=== PATIENT | female | born 1960 | race American Indian/Alaskan Native ===

== ENCOUNTER → 2019-08-07 11:24 | Outpatient (BNVA) | payer MEDICAID, SELFPAY | PROVIDERS: Family Provider Nurse Practitioner Family; Visit Provider Nurse Practitioner Family | DX: N30.90 Cystitis, unspecified without hematuria (principal); N30.10 Interstitial cystitis (chronic) without hematuria | CPT/HCPCS: 80053; 80076; 81001 ==

== ENCOUNTER → 2019-08-25 08:10 | Outpatient (BNVA) | payer MEDICAID, SELFPAY | PROVIDERS: Family Provider Nurse Practitioner Family; Visit Provider Nurse Practitioner | DX: Z11.59 Encounter for screening for other viral diseases (principal) | CPT/HCPCS: 87635 ==

== ENCOUNTER 2019-11-28 10:53 | Outpatient (CLI) | payer MEDICAID, SELFPAY ==
--- NOTE | 2019-11-28 11:03 | XR_ITS ---
WS: [id number] RIGHT KNEE: 3 VIEW(S) TECHNIQUE: AP, oblique(s) and lateral. HISTORY: PAIN IN RIGHT KNEE COMPARISON: 09/06/2012 No fracture or dislocation. Moderate tricompartment osteoarthritis with joint space narrowing and hypertrophic osteophytes. Moderate progression since the prior study. XR/XR knee RT 3V* [id number] IMPRESSION: Interval progression of tricompartment moderate osteoarthritis.
== END 2019-11-28 10:54 | disposition home or self-care (01) ==
LOC: RADWPI 10:57
PROVIDERS: Family Provider Nurse Practitioner Family; PCP Nurse Practitioner Family; Visit Provider Anesthesiology Pain Medicine
DX: M17.11 Unilateral primary osteoarthritis, right knee (principal)
CPT/HCPCS: 73562

== ENCOUNTER → 2020-01-08 08:56 | Outpatient (BNVA) | payer MEDICAID, SELFPAY | PROVIDERS: Family Provider Nurse Practitioner Family; PCP Nurse Practitioner Family; Referring Provider Anesthesiology Pain Medicine; Visit Provider Specialist | DX: M25.561 Pain in right knee (principal); M17.11 Unilateral primary osteoarthritis, right knee | CPT/HCPCS: 73560; 73565 ==

== ENCOUNTER 2020-01-12 08:35 | Outpatient (CLI) | payer MEDICAID, SELFPAY ==
[2020-01-12 09:55] LABS: Glucose Fasting 165 mg/dL (74-109)
[2020-01-13 11:24] LABS: C-Peptide 0.64 ng/mL (0.80-3.85)
== END 2020-01-12 08:36 | disposition home or self-care (01) ==
PROVIDERS: PCP Nurse Practitioner Family; Visit Provider Internal Medicine Endocrinology, Diabetes & Metabolism
DX: E11.40 Type 2 diabetes mellitus with diabetic neuropathy, unspecified (principal); Z79.4 Long term (current) use of insulin; I10 Essential (primary) hypertension
CPT/HCPCS: 36415; 82947; 84681

== ENCOUNTER → 2020-04-10 12:58 | Outpatient (BNVA) | payer MEDICAID, SELFPAY | PROVIDERS: PCP Nurse Practitioner Family; Visit Provider Nurse Practitioner Family | DX: N30.10 Interstitial cystitis (chronic) without hematuria (principal); N30.90 Cystitis, unspecified without hematuria | CPT/HCPCS: 81003 ==

== ENCOUNTER → 2020-09-25 10:59 | Outpatient (BNVA) | payer MEDICAID, SELFPAY | PROVIDERS: PCP Nurse Practitioner Family; Visit Provider Internal Medicine Cardiovascular Disease | DX: R07.9 Chest pain, unspecified (principal); R53.83 Other fatigue; E11.9 Type 2 diabetes mellitus without complications; E78.5 Hyperlipidemia, unspecified; K21.9 Gastro-esophageal reflux disease without esophagitis | CPT/HCPCS: 80053; 83735; 84443; 85025 ==

== ENCOUNTER 2020-10-10 08:16 | Outpatient (CLI) | payer MEDICAID, SELFPAY ==
--- NOTE | 2020-10-10 08:25 | ECG_ITS ---
[facility] Test Date: 2020-10-10 Pat Name: Chelsy Desai Department: Room: Gender: Female Chlorine Cell Tender: : 1960 Requested By: Charissa Schwab Order Number: [id number] Jaspreet MD: Charissa Schwab M.D. Interpretive Statements NAME OF STUDY: LEXISCAN SESTAMIBI STRESS TEST INDICATION: Chest Pain PROCEDURE: At the baseline, the blood pressure was 145/71 mmHg with a heart rate of 65 bpm. The electrocardiogram showed normal sinus rhythm, normal axis with normal ST and T's. The Lexiscan was infused over a period of 20 seconds. A total of 0.4 milligrams of Lexiscan was infused. The stress phase was continued for a total of 5 minutes. Heart rate at the end of the stress phase was 81 bpm with a blood pressure of 143/73 mmHg. The EKG at the peak infusion revealed no significant ST-T wave changes. The study was terminated due to protocol completion. Sestamibi was injected 20 seconds after the Lexiscan infusion. Blood pressure at the end of the recovery phase was 141/70 mmHg with a heart rate of 80 beats per minute. CONCLUSION: 1. No significant EKG changes with the LexiScan infusion. 2. No LexiScan induced chest pain or cardiac arrhythmia. 3. Normal blood pressure and heart rate response. 4. Sestamibi/sestamibi perfusion scan pending; see separate report. Electronically Signed On 10-11-2020 14:01:02 CDT by Charissa Schwab M.D. [id number]
--- NOTE | 2020-10-10 08:25 | NMCV_ITS ---
NM yonas perf SPECT r/s* [id number] Chelsy Desai Age: 60 Gender: F : 1960 Exam Date: 10/10/2020 09:24 Ordering Phys: Charissa Schwab MD ([email or web address]) Technologist: AUBRIE Taveras Exam Location: [facility] Indications: CHEST PAIN STRESS TEST Please see separate stress test report in [facility] for full findings IMAGE PROTOCOL Rest/Stress 1 Lexiscan Day Radiopharmaceutical Dose (mCi) Administration Site Administered by Rest: Tc-99m 10.9 IV AUBRIE Carrizales Sestamibi Stress:Tc-99m 32.7 IV AUBRIE Carrizales Sestamibi Rest: 10-Oct-2020 60 Discovery 630 Stress: 10-Oct-2020 30 Discovery 630 0.4mg Lexiscan. Images obtained in supine and prone position. SPECT RESULTS Technical Quality: Excellent Raw Data Analysis: Normal Image Corrections: No attenuation or motion correction applied Summed Stress Score: 2 Summed Rest Score: 0 Summed Difference Score: 2 PERFUSION FINDINGS Small sized perfusion abnormality of mild severity of apical inferior and apical lateral muhammad on stress images. FUNCTIONAL RESULTS (calculated via Gated SPECT) Stress Image LV EF (%): 86 Stress EDV (mL):81 TID: 0.94 Stress ESV (mL):11 FUNCTIONAL FINDINGS: The left ventricle is normal in size. Transient Ischemia Dilatation of 0.94. There is hyperdynamic left ventricular global systolic function. The left ventricular ejection fraction is normal with a value of 86%. There is hyperdynamic left ventricular wall thickening with no regional wall motion normality. Normal end-diastolic end-systolic volumes. IMPRESSIONS 1. Small sized reversible perfusion abnormality of mild severity of apical inferior and apical lateral muhammad. 2. This may represent small risk area of ischemia in left anterior descending artery territory (SDS=2). 3. Overall left ventricular systolic function is hyperdynamic without regional wall motion abnormalities, LVEF=86%. 4. No prior similar studies to compare. Charissa Schwab MD (Electronically Signed) Final Date: 11 October 2020 14:08 S
[2020-10-10 08:59] VITALS: BMI 40.5
[2020-10-10] MEDS: regadenoson 0.4 Mg/5 ml Syringe IVP (10:07)
[2020-10-10 10:31] VITALS: BP 144/70; PULSE 80
== END 2020-10-10 08:17 | disposition home or self-care (01) ==
LOC: CDL 08:17
PROVIDERS: PCP Nurse Practitioner Family; Visit Provider Internal Medicine Cardiovascular Disease
DX: R07.9 Chest pain, unspecified (principal)
CPT/HCPCS: 78452; 93017; A9500; J2785

== ENCOUNTER 2020-11-01 09:05 | Outpatient (CLI) | payer MEDICAID, SELFPAY ==
--- NOTE | 2020-11-01 09:30 | USCV_ITS ---
Chelsy Desai Age: 60 Gender: F : 1960 Exam Date: 11/01/2020 09:25 Ordering Phys: Charissa Schwab MD ([email or web address]) Technologist: Exam Location: [facility] Indication: AAA HISTORY: Diameter (cm) AP x Transverse x Length Velocity (cm/s) Waveform Prox Aorta: 2.00 x 2.07 x 104.90 Mid Aorta: 1.87 x 2.06 x 84.30 Distal Aorta: 1.42 x 1.58 x 114.00 Right Iliac Prox: 1.10 x 1.48 x 84.30 Left Iliac Prox: 1.10 x 1.35 x 110.70 Stent Prox Landing x x Aneurysmal Sac Max x x Lt Lat Sac Dim Rt Lat Sac Dim Stent Dist Landing x x Right Iliac Stent x x Left Iliac Stent x x Right Renal Art Left Renal Art FINDINGS: Normal abdominal aortic dimensions Near normal dimensions of the iliac arteries Normal Doppler flow velocities CONCLUSIONS Normal abdominal aortic dimensions with no evidence of aneurysm Normal proximal common iliac artery dimensions. Doppler velocities suggesting no significant stenosis in the above- mentioned arteries No similar previous studies are available for comparison Dr Terry Mccluer MD [facility] (Electronically Signed) Final Date: 04 November 2020 09:05 S
--- NOTE | 2020-11-01 10:15 | USCV_ITS ---
Chelsy Desai Age: 60 Gender: F : 1960 Exam Date: 11/01/2020 09:32 Ordering Phys: Charissa Schwab MD ([email or web address]) Technologist: Exam Location: [facility] Indication: PAD Risk Factors: None Previous Vascular Surgery: RIGHT LEFT BP: 135.0 / 80.00 BP: 130.0/ 80.00 0 0 Waveform Velocity (cm/s) Velocity (cm/s) Waveform Triphasic 136.0 Iliac Prox 99.7 Triphasic Triphasic 132.1 Iliac Mid 97.1 Triphasic Triphasic 133.4 Iliac Distal 110.1 Triphasic Triphasic 113.9 FINANCIAL REPRESENTATIVE 107.5 Triphasic Triphasic 110.1 SFA Prox 101.0 Triphasic Triphasic 98.4 SFA Mid 111.4 Triphasic Triphasic 88.0 SFA Dist 82.9 Triphasic Triphasic 64.7 POP 63.4 Triphasic Triphasic 89.3 MEMBER SERVICES REPRESENTATIVE 54.0 Triphasic Triphasic 72.0 DPA 33.2 Triphasic RADHA 1.0 1.0 FINDINGS Normal Doppler flow velocities and Doppler flow signals Intimal thickening and minimal plaques in the femoral arteries bilaterally Normal resting ABIs bilaterally CONCLUSIONS Intimal thickening and minimal plaques in the femoral arteries bilaterally Normal resting ABIs bilaterally with no evidence of any significant stenosis Dr Terry Mcclure MD [facility] (Electronically Signed) Final Date: 04 November 2020 09:08 S
== END 2020-11-01 09:06 | disposition home or self-care (01) ==
LOC: US 09:07
PROVIDERS: PCP Nurse Practitioner Family; Visit Provider Internal Medicine Cardiovascular Disease
DX: I73.9 Peripheral vascular disease, unspecified (principal); M79.604 Pain in right leg; M79.605 Pain in left leg
CPT/HCPCS: 76706; 93925

== ENCOUNTER → 2021-01-21 08:09 | Outpatient (BNVA) | payer MEDICAID, SELFPAY | PROVIDERS: PCP Nurse Practitioner Family; Visit Provider Internal Medicine Cardiovascular Disease | DX: Z20.822 Contact with and (suspected) exposure to COVID-19 (principal); R07.9 Chest pain, unspecified; R06.02 Shortness of breath | CPT/HCPCS: 36415; 80048; 85025; 85610; 87635 ==

== ENCOUNTER 2021-01-28 05:57 | Outpatient (CLI) | payer MEDICAID, SELFPAY ==
[2021-01-28] VITALS (16 sets, daily range): BP systolic 110–137; BP diastolic 61–75; PULSE 64–72; RESP 14–27; TEMP 36.6; O2SAT 93–96; BMI 43.3
--- NOTE | 2021-01-28 06:11 | XACV_ITS ---
Ht: 157 cm Wt: 108 kg BSA: 2.23 m2 Gender: Female : 1960 Any Known Allergies: Other Exam Priority: Routine Procedure(s): Procedure Description: Diagnostic procedure Procedure Description: Left Heart Catheterization Procedure Description: Left ventriculography Procedure Description: Coronary Angiography Diagnostic Cath Status: Elective Diagnostic Findings * Indication: Chest pain/abnormal stress test. * No disease noted in the Left Main, Left Anterior Descending, Right, or Circumflex coronary arteries. * Coronary angiography shows right dominance. Conclusions 1. No disease noted in the Left Main, Left Anterior Descending, Right, or Circumflex coronary arteries. 2. Normal left ventricular systolic function. Ejection fraction of 65%. Recommendations * Aggressive risk factor modification. * Outpatient cardiology follow-up in 4 weeks. Interventional RX Recommendation: medical therapy and/or counseling Diagnostic RX Recommendation: medical therapy and/or counseling Anticoagulation: Heparin Ventriculography Ejection Fraction: 65.0 % Pressures Phase:Rest AO : 146 / 67 ( 100 ) @ 6:08:00 AM 125 / 78 ( 101 ) @ 6:09:00 AM 144 / 67 ( 99 ) @ 6:20:00 AM 143 / 61 ( 95 ) @ 6:20:00 AM LV : 153 / -2 / 20 @ 6:19:00 AM 150 / 0 / 21 @ 6:20:00 AM 147 / 3 / 24 @ 6:20:00 AM Valves Phase:DefaultPhase AV : 3.0 @ 8:28:42 AM AV Mean Gradient: 9.0 @ 8:28:42 AM Clinical Evaluation EBL: 5mL-10mL Procedural Details Procedure Consent Obtained. Pre-Procedure Time Out. Identified patient by full name and date of as verbalized by the patient/guarantor. Does the consent match the physician's order: Yes. Accurate & Complete Informed Consent: Yes. Inpatient/Outpatient History & Physical on Chart: Yes. If H&P is completed, is and addenduem needed: Yes; If yes, is the addendum complete: Yes. Visualize and Verify Site with Patient/Guarantor: N/A. Relevant Radiology Images available: Yes. Pre-op teaching completed and patient verbalized understanding. The risks, benefits, and alternatives of sedation and/or procedure were discussed by physician. The patient agrees to continue. Procedure started. [facility] Clinical Fraility Score: 3: Managing Well. Utilities Equipment Repairer Indications: Suspected CAD. Chest Pain Symptom Assessment: Typical Angina Symptoms. Correct patient, site and procedure confirmed by cath team. Current diagnosis: Chest Pain. Current Diagnosis : Chest Pain. PERRLA. Strong, equal hand farm implement engine mechanic bilaterally. Lungs clear x 5 lobes. IV Site on Arrival: 20 gauge in the left forearm. IV Fluids: 0.9% NaCl at KVO. 0 mL infused prior to confectionery laboratory manager. Pre Procedural Pulses: bilateral dorsalis pedis was 1+. Pre Procedural Pulses: bilateral posterior tibial was 1+. Pre Procedural Pulses: right radial was 3+. Oxygen started at 2liters/min via nasal canula. right groin was prepped with chloroprep then draped in the usual sterile fashion. right radial was prepped with chloroprep then draped in the usual sterile fashion. Baseline sample Acquired. HR: 67 BPM. Physician notified. Physician arrived. Physician scrubbed in. Immediate Pre-Procedure Time Out. Correct Patient: Yes; Correct Procedure: Yes; Correct Site: Yes; Correct Patient Position: Yes; Correct Supplies: Yes; Dried Flammable Prep: Yes; Blood Products Available: N/A;. Lidocaine 1% infiltrated to the right radial. Arterial access obtained. A 5 [place] TIG catheter in over wire. Multiple views taken of left coronary artery. Catheter redirected to the RCA. Multiple views taken of right coronary artery. Catheter removed over the exchange wire. A 5 [place] JL3.5 catheter in over wire. Multiple views taken of left coronary artery. Catheter removed over the exchange wire. A 5 [place] Angled Pig catheter in over wire. EDP Sample taken: LV 153/-3,20; HR: 75 BPM; SpO2: 96%. LV gram performed in SUE @ 10 mL/second for a total of 30 mL. EDP Sample taken: LV 150/-1,21; HR: 72 BPM; SpO2: 96%. Pullback taken: LV 147/3,24; AO 144/67(99); Mean: 9mmHg, Peak to Peak: 3mmHg, SEP: 16sec/min; HR: 72 BPM; SpO2: 96%. Catheter removed over the exchange wire. A TR Band was successful obtaining hemostatsis at the Right Radial artery insertion site. Post Procedure: Pulses reassessed and unchanged. PERRLA. Strong, equal hand farm implement engine mechanic bilaterally. No VTE prophylaxis required. Medication's Wasted: Lidocaine 1% = 16 mL. Medication's Wasted: Nitro = 49.8 mg. Medication's Wasted: Heparin = 1000 units. Total IV fluids: 50 mL. Contrast type used: Visipaque 320 mgI/mL, 500 mL bottle. Complications: None. Estimated blood loss: 5mL-10mL. Procedure completed. Patient transferred by wheelchair to CPRU. Vital chart was stopped. Access Site Site: Right Radial artery Sheath Size: 6 Fr Hemostasis Method: TR Band Hemostasis Success: Successful Procedure Medications Start: 7:47 AM Stop: 7:47 AM Medication: Fentanyl Amount: 50 mcg Route: I.V. Start: 7:56 AM Stop: 7:56 AM Medication: Versed Amount: 2 mg Route: I.V. Start: 8:03 AM Stop: 8:03 AM Medication: Fentanyl Amount: 50 mcg Route: I.V. Start: 8:04 AM Stop: 8:04 AM Medication: Nitrogylcerin Amount: 200 mcg Route: I.A. Start: 8:07 AM Stop: 8:07 AM Medication: Heparin Amount: 5000 units Route: I.V. Start: 8:11 AM Stop: 8:11 AM Medication: Versed Amount: 1 mg Route: I.V. I, the attending physician, have reviewed and verified all procedure medications. Yes, all medications given per verbal order History/Risk Factors Hypertension: No Dyslipidemia: Yes Peripheral Arterial Disease (PAD): No Myocardial Infarction (NH): No Obesity: Yes Renal Disease: No Tobacco Use: Current/Recent(w/in 1 year) Prior Interventions PCI: No CABG: No Valve Surgery: No Report Signatures Finalized by Bakari Robertson MD on 02/11/2021 11:17 AM
--- NOTE | 2021-01-28 07:48 | W.PM.OPSFHP ---
Same Day Surgery H&P Indication for Procedure/HPI DATE OF PROCEDURE: January 28, 2021 CHIEF COMPLAINT/INDICATIONFOR SURGICAL PROCEDURE: Chest pain/abnormal stress test PREOP DIAGNOSIS: Chest pain/abnormal stress test PLANNED PROCEDRUE: Operation Date: 01/28/21 07:00 Proposed Procedures p Cardiac Catheterization(Left) - Bakari Robertson M.D Possible percutaneous coronary intervention 60-year-old woman with PMH of HTN, HLD, DM-2, ERIC on CPAP and GERD has been having chest pain, shortness of breath and had an abnormal stress test. Plan for coronary angiogram today. ROS CONSTITUTIONAL: No fever chills weight loss or gain or night sweats. [] HEENT: Normocephalic, atraumatic.[] RESPIRATORY: No cough, sputum, hemoptysis or wheezing.[] CARDIOVASCULAR: Has shortness of breath and chest pain, no PND, orthopnea, lower extremity edema, presyncope or syncope. [] GI: no nausea vomiting diarrhea. [] PHARMACEUTICAL SERVICE REPRESENTATIVE: No numbness, tingling, weakness or loss of function in any part of the body. [] MUSCULOSKELETAL: No knee or joint pain or rashes. [] Medications/Allergies* Home Medications Medication Instructions Recorded Confirmed Type albuterol sulfate 90 mcg/actuation 2 puff INHALATION Q6H PRN 08/07/19 01/27/21 History aerosol inhaler atorvastatin 40 mg tablet 40 mg PO DAILY 08/07/19 01/27/21 History esomeprazole magnesium 40 mg 40 mg PO DAILY 08/07/19 01/27/21 History capsule,delayed release montelukast 10 mg tablet 10 mg PO DAILY 08/07/19 01/27/21 History insulin pump controller #1 ea 04/10/20 04/10/20 History cetirizine 10 mg tablet 10 mg PO DAILY PRN 09/16/20 01/27/21 History fluticasone propionate 50 1 spray INTRANASAL DAILY 09/16/20 01/27/21 History mcg/actuation nasal spray,suspension furosemide 20 mg tablet 20 mg PO DAILY 09/16/20 01/27/21 History acetaminophen 325 mg capsule 325 mg PO QID PRN 12/26/20 01/27/21 History Allergies/Adverse Reactions Allergy/AdvReac Type Severity Reaction Status Date / Time adhesive tape Allergy Unknown ALGY-Rash Verified 12/17/20 15:03 aspirin Allergy Unknown Unknown Verified 12/17/20 15:03 hydroxyzine Allergy Unknown Unknown Verified 12/17/20 15:03 latex Allergy Unknown ALGY-Rash Verified 12/17/20 15:03 Penicillins Allergy Unknown unknown Verified 12/17/20 15:03 povidone-iodine Allergy Unknown ALGY-Rash Verified 12/17/20 15:03 [From Betadine] prednisone Allergy Unknown Unknown Verified 12/17/20 15:03 soap [From Betadine] Allergy Unknown ALGY-Rash Verified 12/17/20 15:03 sulfamethoxazole Allergy Unknown Unknown Verified 12/17/20 15:03 [From Bactrim] trimethoprim [From Bactrim] Allergy Unknown Unknown Verified 12/17/20 15:03 theophylline AdvReac ADR-Diarrhe Verified 12/17/20 15:03 a Pertinent History/Comorbid Conditions* Medical History (Updated 12/22/20 @ 21:39 by Charissa Schwab MD) Chronic interstitial cystitis Chronic migraine Diabetes mellitus type 2 in nonobese Dyslipidemia GERD (gastroesophageal reflux disease) Polycythemia Recurrent cystitis Tobacco abuse Surgical History (Updated 08/06/19 @ 09:03 by Zhen Guerin MD) History of ankle surgery History of appendectomy History of arthroscopic knee surgery History of cholecystectomy History of hysterectomy History of shoulder surgery History of vocal cord polypectomy Family History (Updated 08/06/19 @ 09:05 by Zhen Guerin MD) Pancreatic cancer CAD (coronary artery disease) Social History Smoking and tobacco status: former smoker Alcohol intake: unknown Adopted: No Caregiver/support person: No Marital status: Legally Current occupational status: disabled Current gender identity: Female Pertinent Exam Findings alert, oriented x 3, clear to auscultation bilaterally and regular rate & rhythm Conscious Sedation Assessment PATIENT ASSESSED PRIOR TO SEDATION, WITH NO CHANGE NOTED: Yes AIRWAY EVAL/ANESTHESIA PLAN: normal airway, see other exam findings, ASA III, Monitored Anesthesia, Local Anesthesia, Risks, benefits & alternatives of sedation and/or procedure discussed and Patient agrees to continue as planned Recommendations Surgery/Procedure today (Left heart cath with possible percutaneous coronary intervention) Coding Level of Care Code Acute Clinical Esthetician for Yoel De La Cruz
--- NOTE | 2021-01-28 10:45 | SUR.PHASEII ---
TR BAND Band deflated and removed per protocol. No hematoma noted at this time.
--- NOTE | 2021-01-28 12:09 | ECG_ITS ---
[facility] Test Date: 2021-01-28 Pat Name: Chelsy Desai Department: Room: Gender: Female Video Library Assistant: : 1960 Requested By: Bakari Robertson Order Number: [id number] Jaspreet MD: Bakari Robertson M.D. Measurements Intervals [place] Rate: 67 P: 33 MT: 171 QRS: -16 QRSD: 75 T: 33 QT: 406 QTc: 429 Interpretive Statements SINUS RHYTHM No previous ECG available for comparison Electronically Signed On 01-29-2021 17:40:11 TEACHER AIDE by Bakari Robertson M.D. [id number]
== END 2021-01-28 12:33 | disposition home or self-care (01) ==
PROVIDERS: PCP Nurse Practitioner Family; Visit Provider Internal Medicine
DX: R07.89 Other chest pain (principal); R94.39 Abnormal result of other cardiovascular function study; I10 Essential (primary) hypertension; E11.9 Type 2 diabetes mellitus without complications; G47.33 Obstructive sleep apnea (adult) (pediatric); K21.9 Gastro-esophageal reflux disease without esophagitis; R06.02 Shortness of breath; E78.5 Hyperlipidemia, unspecified; Z87.891 Personal history of nicotine dependence
CPT/HCPCS: 36415; 93005; 93452; C1769; C1887; C1894; J1644; J2250; J3010; J3490; Q0163; Q9967

== ENCOUNTER → 2021-02-04 16:07 | Outpatient (BNVA) | payer MEDICAID, SELFPAY | PROVIDERS: PCP Nurse Practitioner Family; Visit Provider Nurse Practitioner Family | DX: E78.5 Hyperlipidemia, unspecified (principal); E11.9 Type 2 diabetes mellitus without complications | CPT/HCPCS: 80048 ==

== ENCOUNTER 2021-06-30 20:00 | Outpatient (CLI) | payer MEDICAID, SELFPAY | END 2021-06-30 20:01 | disposition home or self-care (01) | LOC: SLEEP 07-01 10:15 | PROVIDERS: PCP Nurse Practitioner Family; Visit Provider Anesthesiology Pain Medicine | DX: G47.33 Obstructive sleep apnea (adult) (pediatric) (principal) | CPT/HCPCS: 95811 ==

== ENCOUNTER → 2022-03-26 14:04 | Outpatient (BNVA) | payer MEDICAID, SELFPAY | PROVIDERS: PCP Nurse Practitioner Family; Visit Provider Internal Medicine Cardiovascular Disease | DX: R07.9 Chest pain, unspecified (principal); F17.200 Nicotine dependence, unspecified, uncomplicated | CPT/HCPCS: 99214; Q3014 ==

== ENCOUNTER → 2022-07-08 11:20 | Outpatient (BNVA) | payer MEDICAID, SELFPAY | PROVIDERS: PCP Nurse Practitioner Family; Visit Provider Internal Medicine Pulmonary Disease | DX: M17.12 Unilateral primary osteoarthritis, left knee (principal); M19.021 Primary osteoarthritis, right elbow | CPT/HCPCS: 73080; 73562 ==

== ENCOUNTER → 2023-04-23 09:58 | Outpatient (BNVA) | payer MEDICAID, SELFPAY | PROVIDERS: PCP Nurse Practitioner Family; Visit Provider Internal Medicine Cardiovascular Disease | DX: E78.5 Hyperlipidemia, unspecified (principal); Z72.0 Tobacco use; E11.9 Type 2 diabetes mellitus without complications; R00.2 Palpitations; R07.9 Chest pain, unspecified; K21.9 Gastro-esophageal reflux disease without esophagitis; Z79.4 Long term (current) use of insulin | CPT/HCPCS: 99213 ==

== ENCOUNTER → 2023-05-03 12:45 | Outpatient (BNVA) | payer MEDICAID, SELFPAY | PROVIDERS: PCP Nurse Practitioner Family; Visit Provider Internal Medicine Cardiovascular Disease | DX: R00.1 Bradycardia, unspecified (principal); R00.0 Tachycardia, unspecified | CPT/HCPCS: 93270 ==

== ENCOUNTER → 2023-11-15 11:32 | Outpatient (BNVA) | payer MEDICAID, SELFPAY | PROVIDERS: PCP Nurse Practitioner Family; Visit Provider Internal Medicine Cardiovascular Disease | DX: R00.1 Bradycardia, unspecified (principal); R07.9 Chest pain, unspecified | CPT/HCPCS: 93005 ==

== ENCOUNTER 2023-11-15 11:48 | Emergency (ER) | payer MEDICAID, SELFPAY ==
--- NOTE | 2023-11-15 11:51 | ECG_ITS ---
[facility] Test Date: 2023-11-15 Pat Name: Chelsy Desai Department: Room: Gender: Female In File Operator: : 1960 Requested By: Lina Thomas Order Number: [id number] Jaspreet MD: Bakari Robertson M.D. Measurements Intervals [place] Rate: 60 P: 44 MI: 181 QRS: -11 QRSD: 82 T: 29 QT: 400 QTc: 401 Interpretive Statements SINUS RHYTHM LOW QRS VOLTAGE IN PRECORDIAL LEADS [QRS DEFLECTION < 1.0 mV IN CHEST LEADS] PATTERN CONSISTENT WITH PULMONARY DISEASE Compared to ECG 11/15/2023 11:36:49 Low QRS voltage now present Electronically Signed On 11-16-2023 7:44:07 CDT by Bakari Robertson M.D. [email or web address] [email or web address].[email or web address]/[id number] f
--- NOTE | 2023-11-15 11:51 | XR_ITS ---
WS: [id number] XR chest 1V portable [id number] REASON FOR EXAM: cp FINDINGS: The tortuosity and ectasia of the thoracic aorta has increased since the previous examination of 02/06. Cardiac silhouette appears larger than on the previous examination as well. Remainder of the chest appears unchanged. There is calcified granulomatous disease bilaterally. No acute pulmonary parenchymal or pleural abnormality is identified. Moderate degenerative spondylosis of the mid and lower thoracic spine. Previous rotator cuff tendon repair right shoulder. XR/XR chest 1V portable [id number] IMPRESSION: No acute chest abnormality.
[2023-11-15 12:01] VITALS: BP 149/81; PULSE 61; TEMP 36.7; O2SAT 97; BMI 37.9
[2023-11-15 12:22] LABS: Basophils # 0.1 10^3/uL (0.0-0.1); Basophils % 0.6 %; Eosinophils # 0.2 10^3/uL (0.0-0.8); Eosinophils % 1.9 %; Hematocrit 45.4 % (36-47); Lymphocytes # 2.5 10^3/uL (0.8-4.8); Lymphocytes % 25.9 %; Mean Corpuscular HGB Conc 33.7 g/dL (30-55); Mean Corpuscular Hemoglobin 30.7 pg (27-33); Mean Corpuscular Volume 91.2 fl (85-98); Mean Platelet Volume 10.1 fL (7.4-10.4); Monocytes # 0.6 10^3/uL (0.2-0.9); Monocytes % 6.4 %; Neutrophils # 6.24 10^3/uL (1.8-7.7); Neutrophils % 64.8 %; Nucleated Red Blood Cells % 0 %; Platelet Count 323 10^3/cmm (157-399); Red Blood Count 4.98 10^6/uL (3.85-5.65); Red Cell Distribution Width 12.6 % (12.1-15.1); White Blood Count 9.63 10^3/uL (3.29-11.43)
[2023-11-15 12:38] LABS: INR 0.91 (0.8-1.2)
[2023-11-15 12:43] LABS: Alanine Aminotransferase 20 U/L (0-33); Albumin Level 4.7 g/dL (3.5-5.2); Alkaline Phosphatase 79 U/L (35-105); Anion Gap 15.3 (5-19); Aspartate Amino Transferase 15 U/L (0-32); Blood Urea Nitrogen 10 mg/dL (8-23); Calcium 9.5 mg/dL (8.5-10.5); Carbon Dioxide 28 mmol/L (22-29); Chloride 102 mmol/L (98-107); Creatinine Clr Calc Pharmacy 91.2503; Globulin 2.6 g/dL (1.3-4.6); Glomerular Filtration Rate 84.5 mL/min (90-130); Glucose 109 mg/dL (65-115); Lipase 22 U/L (13-60); Osmolality Calculated 292 mOsm/kg (285-295); Potassium 4.3 mmol/L (3.5-5.1); Sodium 141 mmol/L (136-145); Total Bilirubin 0.4 mg/dL (0.15-1.2); Total Protein 7.3 g/dL (6.6-8.7)
[2023-11-15 12:45] LABS: Troponin(5th) Baseline < 6 ng/L (0-10)
--- NOTE | 2023-11-15 13:51 | ECG_ITS ---
[facility] Test Date: 2023-11-15 Pat Name: Chelsy Desai Department: Room: Gender: Female Nursing Informatics Specialist: : 1960 Requested By: Lina Thomas Order Number: [id number] Jaspreet MD: Bakari Robertson M.D. Measurements Intervals [place] Rate: 53 P: 48 IA: 181 QRS: -4 QRSD: 77 T: 36 QT: 410 QTc: 387 Interpretive Statements SINUS BRADYCARDIA Compared to ECG 11/15/2023 11:58:19 Sinus rhythm no longer present Electronically Signed On 11-16-2023 7:52:09 CDT by Bakari Robertson M.D. [email or web address] Solutionspark[facility].DrEd Online Doctor/store/[id number]
[2023-11-15 13:53] VITALS: BP 105/56; PULSE 67; O2SAT 97
[2023-11-15 13:57] LABS: Troponin 5 2HR Delta 0.00001 ABS# (0-10)
--- NOTE | 2023-11-15 14:05 | W.ED.CHESTPA ---
HPI - Chest Pain General: Chief Complaint: Chest Pain Stated Complaint: chest pain Time Seen by Provider: 11/15/23 13:30 Source: patient Mode of arrival: ambulatory Limitations: no limitations History of Present Illness: 63-year-old female states she has been having chest pain that started this morning states it is a mild pressure-like pain in the center of her chest she rates her pain a 2 out of 10 currently states she also developed a headache. Denies any severe headache and it was not sudden onset she denies any shortness of breath denies any nausea denies any diaphoresis. Associated symptoms: Deny abdominal pain, dyspnea, fever(s), nausea or vomiting Related Data Home Medications Medication Instructions Recorded Confirmed albuterol sulfate 90 mcg/actuation 2 puff inhalation Q6H PRN 08/07/19 11/15/23 aerosol inhaler (ProAir HFA) Shortness Of Breath atorvastatin 40 mg tablet 40 mg PO DAILY 08/07/19 11/15/23 esomeprazole magnesium 40 mg 40 mg PO DAILY 08/07/19 11/15/23 capsule,delayed release montelukast 10 mg tablet 10 mg PO DAILY 08/07/19 11/15/23 (Singulair) insulin pump controller #1 ea 04/10/20 11/15/23 cetirizine 10 mg tablet (All Day 10 mg PO DAILY PRN Allergy Symptoms 09/16/20 11/15/23 Allergy (cetirizine)) fluticasone propionate 50 1 spray intranasal DAILY 09/16/20 11/15/23 mcg/actuation nasal spray,suspension (Allergy Relief (fluticasone)) furosemide 20 mg tablet 20 mg PO DAILY 09/16/20 11/15/23 acetaminophen 325 mg capsule 325 mg PO QID PRN Pain (Scale 12/26/20 11/15/23 Score 1-3) liraglutide 0.6 mg/0.1 mL (18 mg/3 1.2 mg SUBCUT Q24H 03/26/22 11/15/23 mL) subcutaneous pen injector (Victoza 2-Martin) Previous Rx's Medication Instructions Recorded nitroglycerin 0.4 mg sublingual 0.4 mg sublingual Q5M PRN chest 12/22/20 tablet pain #30 tabs losartan 25 mg tablet See Rx Instructions .Route 02/02/23 .COMPLEX #90 tabs clopidogrel 75 mg tablet (Plavix) 75 mg PO DAILY #90 tabs 06/23/23 metoprolol succinate 25 mg 25 mg PO DAILY #90 tabs 07/21/23 tablet,extended release 24 hr Allergies Allergy/AdvReac Type Severity Reaction Status Date / Time adhesive tape Allergy Unknown ALGY-Rash Verified 11/15/23 12:06 aspirin Allergy Unknown Unknown Verified 11/15/23 12:06 hydroxyzine Allergy Unknown Unknown Verified 11/15/23 12:06 latex Allergy Unknown ALGY-Rash Verified 11/15/23 12:06 Penicillins Allergy Unknown unknown Verified 11/15/23 12:06 povidone-iodine Allergy Unknown ALGY-Rash Verified 11/15/23 12:06 [From Betadine] prednisone Allergy Unknown Unknown Verified 11/15/23 12:06 soap [From Betadine] Allergy Unknown ALGY-Rash Verified 11/15/23 12:06 sulfamethoxazole Allergy Unknown Unknown Verified 11/15/23 12:06 [From Bactrim] trimethoprim [From Bactrim] Allergy Unknown Unknown Verified 11/15/23 12:06 theophylline AdvReac ADR-Diarrhe Verified 11/15/23 12:06 a Review of Systems Const: Denies: fever(s), chills, body aches or change in appetite ENMT: Denies: throat pain or dental pain Card: Reports: chest pain Resp: Denies: dyspnea GI: Denies: abdominal pain, nausea, vomiting or diarrhea Musc: Denies: neck pain or back pain Skin/Breast: Denies: rash Neuro: Reports: headache(s) PFSH ED PFSH: Medical History Intermittent palpitations Polycythemia Tobacco abuse Chronic migraine Dyslipidemia GERD (gastroesophageal reflux disease) Diabetes mellitus type 2 in nonobese Recurrent cystitis Chronic interstitial cystitis Surgical History History of arthroscopic knee surgery History of shoulder surgery History of vocal cord polypectomy History of cholecystectomy History of ankle surgery History of appendectomy History of hysterectomy Family History Father Arrhythmia Other CAD (coronary artery disease) Pancreatic cancer Social History Smoking and tobacco/nicotine status: former use of tobacco/nicotine Alcohol intake: unknown Substance/Drug Use: unknown Adopted: No Caregiver/support person: No Marital status: Legally Current occupational status: disabled Current gender identity: Female Physical Exam Const: COMMON NORMALS: no acute distress, patient oriented x3 and healthy appearing HENMT: COMMON NORMALS: normocephalic and atraumatic HEAD & SCALP: normocephalic and atraumatic Eye: COMMON NORMALS: conjunctivae normal CONJUNCTIVA: Yes conjunctivae normal Neck/C-Spine: COMMON NORMALS: full ROM and supple Chest: COMMONS NORMALS: normal inspection of the chest and normal palpation of entire chest wall Resp: COMMON NORMALS: normal respiratory effort, No retractions, No use of accessory muscles and clear to auscultation bilaterally AUSCULTATION: clear to auscultation bilaterally Cardio: COMMON NORMALS: regular rate, regular rhythm and No murmurs present (Cardio) RATE: regular rate RHYTHM: regular rhythm GI: COMMON NORMALS: Normal to inspection, nondistended, normoactive bowel sounds present, Soft to palpation, non-tender and no masses PALPATION: Yes Soft to palpation Extremity: COMMON NORMALS: normal to inspection and full ROM Neuro: COMMON NORMALS: patient oriented x3, moves all extremities and no focal motor deficits Psych: COMMON NORMALS: mental status grossly normal, Normal thought process present and cooperative THOUGHT PROCESS: Normal thought process present Skin: COMMON NORMALS: no rashes or lesions noted and no wounds GENERAL SKIN EXAM: no rashes or lesions noted Course Vital Signs: Vital signs: Vital Signs Temperature 98.1 F 11/15/23 12:01 Pulse Rate 65 11/15/23 14:40 Blood Pressure 143/70 11/15/23 14:40 Pulse Oximetry 96 11/15/23 14:40 Oxygen Delivery Me thod Room Air 11/15/23 12:01 MDM - Chest Pain Medical Decision Making Patient presents here with chest pain that is atypical in nature troponins are negative no signs of pulmonary embolism. Patient has no signs of dissection patient stable for discharge follow-up with wind turbine electrical engineer return if worsening. Medical Records I reviewed the patient's medical records. Lab Data I reviewed the patient's lab results. 11/15/23 12:15 11/15/23 12:15 Radiology Impressions Chest X-Ray 11/15/23 11:51 IMPRESSION: No acute chest abnormality. Laboratory Results WBC 9.63 10^3/uL (3.29-11.43) 11/15/23 12:15 RBC 4.98 10^6/uL (3.85-5.65) 11/15/23 12:15 Hgb 15.30 g/dL (11.27-16.99) 11/15/23 12:15 Hct 45.4 % (36-47) 11/15/23 12:15 MCV 91.2 fl (85-98) 11/15/23 12:15 MCH 30.7 pg (27-33) 11/15/23 12:15 MCHC 33.7 g/dL (30-55) 11/15/23 12:15 RDW 12.6 % (12.1-15.1) 11/15/23 12:15 Plt Count 323 10^3/cmm (157-399) 11/15/23 12:15 MPV 10.1 fL (7.4-10.4) 11/15/23 12:15 Neut % (Auto) 64.8 % 11/15/23 12:15 Lymph % (Auto) 25.9 % 11/15/23 12:15 [place] % (Auto) 6.4 % 11/15/23 12:15 Eos % (Auto) 1.9 % 11/15/23 12:15 Baso % (Auto) 0.6 % 11/15/23 12:15 Neut # (Auto) 6.24 10^3/uL (1.8-7.7) 11/15/23 12:15 Lymph # (Auto) 2.5 10^3/uL (0.8-4.8) 11/15/23 12:15 [place] # (Auto) 0.6 10^3/uL (0.2-0.9) 11/15/23 12:15 Eos # (Auto) 0.2 10^3/uL (0.0-0.8) 11/15/23 12:15 Baso # (Auto) 0.1 10^3/uL (0.0-0.1) 11/15/23 12:15 Nucleated RBC % (auto) 0 % 11/15/23 12:15 Nucleated RBCs # 0.0 /100WBC 11/15/23 12:15 PT 12.50 SECONDS (12.1-14.9) 11/15/23 12:15 INR 0.91 (0.8-1.2) 11/15/23 12:15 Sodium 141 mmol/L (136-145) 11/15/23 12:15 Potassium 4.3 mmol/L (3.5-5.1) 11/15/23 12:15 Chloride 102 mmol/L (98-107) 11/15/23 12:15 Carbon Dioxide 28 mmol/L (22-29) 11/15/23 12:15 Anion Gap 15.3 (5-19) 11/15/23 12:15 BUN 10 mg/dL (8-23) 11/15/23 12:15 Creatinine 0.7 mg/dL (0.5-0.9) 11/15/23 12:15 GFR Calculation 84.5 mL/min (90-130) L 11/15/23 12:15 Glucose 109 mg/dL (65-115) 11/15/23 12:15 Calculated Osmolality 292 mOsm/kg (285-295) 11/15/23 12:15 Calcium 9.5 mg/dL (8.5-10.5) 11/15/23 12:15 Total Bilirubin 0.4 mg/dL (0.15-1.2) 11/15/23 12:15 AST 15 U/L (0-32) 11/15/23 12:15 ALT 20 U/L (0-33) 11/15/23 12:15 Alkaline Phosphatase 79 U/L (35-105) 11/15/23 12:15 Troponin T Baseline < 6 ng/L (0-10) 11/15/23 12:15 Troponin T 120 Minute 6.00 ng/L (0-10) 11/15/23 13:29 Delta Troponin T 0.62992 ABS# (0-10) 11/15/23 13:29 Total Protein 7.3 g/dL (6.6-8.7) 11/15/23 12:15 Albumin 4.7 g/dL (3.5-5.2) 11/15/23 12:15 Globulin 2.6 g/dL (1.3-4.6) 11/15/23 12:15 Lipase 22 U/L (13-60) 11/15/23 12:15 All radiology interpretation(s) finalized by discharge EKG Data EKG 1: I personally reviewed and interpreted this EKG as follows: EKG interpretation date: 11/15/23 EKG interpretation time: 13:55 Interpretation: sinus candy hr [address] elevation qrs 77 qtc 393 Discharge Plan Discharge Patient Disposition: Home Clinical Impression: Chest pain Qualifiers: Chest pain type: unspecified Qualified Code(s): R07.9 - Chest pain, unspecified Condition: Stable Prescriptions: No Action (DME) insulin pump controller Misc See Rx Instructions .ROUTE .MEDSUPPLY Qty: 1 Rx Instructions: As directed esomeprazole magnesium 40 mg capsule,delayed release(DR/EC) 40 mg PO DAILY albuterol sulfate [ProAir HFA] 90 mcg/actuation HFA aerosol inhaler 2 puff INHALATION Q6H PRN (Reason: Shortness Of Breath) montelukast [Singulair] 10 mg tablet 10 mg PO DAILY atorvastatin 40 mg tablet 40 mg PO DAILY furosemide 20 mg tablet 20 mg PO DAILY Hold Instructions: Resume on 01/29/21. cetirizine [All Day Allergy (cetirizine)] 10 mg tablet 10 mg PO DAILY PRN (Reason: Allergy Symptoms) fluticasone propionate [Allergy Relief (fluticasone)] 50 mcg/actuation spray,suspension 1 spray intranasal DAILY Rx Instructions: administer into each nostril nitroglycerin 0.4 mg tablet, sublingual 0.4 mg sublingual Q5M PRN (Reason: chest pain) Qty: 30 3RF Rx Instructions: do not exceed 3 doses per episode Victoza 2-Martin 0.6 mg/0.1 mL (18 mg/3 mL) pen injector 1.2 mg SUBCUT Q24H acetaminophen 325 mg capsule 325 mg PO QID PRN (Reason: Pain (Scale Score 1-3)) losartan 25 mg tablet See Rx Instructions .ROUTE .COMPLEX Qty: 90 3RF Dose Instruction: TAKE ONE TABLET BY MOUTH DAILY Rx Instructions: TAKE ONE TABLET BY MOUTH DAILY clopidogrel [Plavix] 75 mg tablet 75 mg PO DAILY Qty: 90 3RF metoprolol succinate 25 mg tablet extended release 24 hr 25 mg PO DAILY Qty: 90 3RF Discharge Orders: Discharge ED (Routine); Ordered 11/15/23 Ordered By: Lina Thomas Referrals: Brady,Majo, SALES ENGINEERING MANAGER [Primary Care Provider] - 4-7 days Discharge Diet: Advance as tolerated Discharge Activity: Resume usual activity Patient Instructions: Chest Pain (ED) Coding Level of Care Code ED Forest Fire Control Officer for Yoel De La Cruz
[2023-11-15] MEDS: ketorolac 30 mg/mL INJ 15 MG IVP (14:17)
[2023-11-15 14:40] VITALS: BP 143/70; PULSE 65; O2SAT 96
== END 2023-11-15 14:41 | disposition home or self-care (01) ==
PROVIDERS: Emergency Provider Emergency Medicine; PCP Nurse Practitioner Family
DX: R07.9 Chest pain, unspecified (principal); R00.1 Bradycardia, unspecified; Z79.02 Long term (current) use of antithrombotics/antiplatelets; Z79.4 Long term (current) use of insulin; Z96.41 Presence of insulin pump (external) (internal); Z87.891 Personal history of nicotine dependence; E78.5 Hyperlipidemia, unspecified; E11.9 Type 2 diabetes mellitus without complications
CPT/HCPCS: 36415; 71045; 80053; 83690; 84484; 85025; 85610; 93005; 96374; 99214; 99285; J1885

== ENCOUNTER 2024-01-14 10:00 | Outpatient (CLI) | payer MEDICAID, SELFPAY ==
--- NOTE | 2024-01-14 10:04 | MM_ITS ---
WS: [id number] BILATERAL SCREENING DIGITAL TOMOSYNTHESIS MAMMOGRAM WITH CAD HISTORY: SCREENING COMPARISON: 01/19/2014, 04/01/2012 Bilateral CC and MLO views with tomosynthesis and synthetic mammography submitted. Computer aided det ection analyzed. Breast composition: The breasts are extremely dense, which lowers the sensitivity of mammography. No suspicious masses, microcalcifications or architectural distortion. Dense scattered breast tissue wit h nodules and calcifications. No suspicious interval change. MM/MM [facility] tomosynthesis [id number] IMPRESSION: BI-RADS: 2 - Benign FOLLOW UP: 1 Year Follow-up
== END 2024-01-14 10:03 | disposition home or self-care (01) ==
PROVIDERS: PCP Nurse Practitioner Family; Visit Provider Nurse Practitioner Family
DX: Z12.31 Encounter for screening mammogram for malignant neoplasm of breast (principal)
CPT/HCPCS: 77063; 77067

== ENCOUNTER → 2024-01-28 11:28 | Outpatient (BNVA) | payer MEDICAID, SELFPAY | PROVIDERS: PCP Nurse Practitioner Family; Visit Provider Clinical Nurse Specialist Adult Health | DX: N39.0 Urinary tract infection, site not specified (principal); R30.0 Dysuria; H66.001 Acute suppurative otitis media without spontaneous rupture of ear drum, right ear | CPT/HCPCS: 81000; 87086 ==

== ENCOUNTER → 2024-04-24 12:27 | Outpatient (BNVA) | payer MEDICAID, SELFPAY | PROVIDERS: PCP Nurse Practitioner Family; Visit Provider Obstetrics & Gynecology | DX: R10.2 Pelvic and perineal pain (principal); Z98.890 Other specified postprocedural states; R93.89 Abnormal findings on diagnostic imaging of other specified body structures | CPT/HCPCS: 76857 ==

== ENCOUNTER → 2024-05-10 13:53 | Outpatient (BNVA) | payer MEDICAID, SELFPAY | PROVIDERS: PCP Nurse Practitioner Family; Visit Provider Clinical Nurse Specialist Adult Health | DX: G62.9 Polyneuropathy, unspecified (principal); R10.2 Pelvic and perineal pain | CPT/HCPCS: 82306; 82607 ==

== ENCOUNTER → 2024-08-17 14:09 | Outpatient (BNVA) | payer MEDICAID, SELFPAY | PROVIDERS: PCP Clinical Nurse Specialist Adult Health; Visit Provider Clinical Nurse Specialist Adult Health | DX: M17.12 Unilateral primary osteoarthritis, left knee (principal) | CPT/HCPCS: 73562 ==

== ENCOUNTER 2024-08-24 09:34 | Outpatient (CLI) | payer MEDICAID, SELFPAY ==
--- NOTE | 2024-08-24 13:45 | MR_ITS ---
WS: [id number] MRI LEFT KNEE HISTORY: M25.562 - Pain in left knee COMPARISON: 08/17/2024 Anterior cruciate ligament: Intact. Posterior cruciate ligament: Intact. Medial collateral ligament: Extruded meniscus from the joint displacing the MCL. No MCL tear. Posterior lateral corner structures: Intact. Medial menisci: Abnormal shape and signal in the posterior horn. Horizontal signal extending along the inferior aspect of the posterior meniscus extends into the meniscal root. Very small caliber meniscus. Anterior horn is normal. Lateral meniscus: Mild globular signal meniscal root of the posterior horn but no definite tear. Extensor mechanism: Distal quadriceps tendon and patellar tendons are intact. Fluid and soft tissue: Moderate Raya's cyst. Complex cystic mass in the posterior knee measures 1.3 x 2.5 cm. This is a slightly lobulated mass and is most likely a ganglion. Osseous and articular structures: Patellofemoral compartment: Moderate diffuse thinning of the cartilage. Full- thickness cartilage defects over the patellar eminence and lateral patellar facet. Mild subchondral edema along the patellar eminence and lateral facet. Medial compartment: Moderate near the medial compartment. Diffuse mild chondromalacia. Small marginal osteophytes. Mild subchondral edema medial tibial plateau and at the base of the tibial spines. Lateral joint space narrowing: Mild to moderate narrowing. Full-thickness cartilage defects along the weightbearing surface of the femoral condyle. Moderate osteophytes along the joint line. Small amount of subchondral edema along the lateral tibial plateau. MR/MR knee LT wo con* [id number] IMPRESSION: 1. MCL is being displaced to the joint line by an extruded meniscus. 2. Horizontal tear posterior horn medial meniscus with tear extending along th e intra-articular surface and into the meniscal root. 3. Intrasubstance degeneration in the lateral meniscus, posterior horn. 4. Small Raya's cyst. 5. Lobulated cystic mass along the posterior knee is likely a ganglion measuri ng 1.3 x 2.5 cm. 6. Mild to moderate tricompartment joint space narrowing. Tricompartment chond romalacia. Full-thickness cartilage defects in the patella and along the weight bearing surface of the lateral femoral condyle. 7. Moderate-sized Raya's cyst.
== END 2024-08-24 09:35 | disposition home or self-care (01) ==
LOC: RAD 09:35
PROVIDERS: PCP Clinical Nurse Specialist Adult Health; Visit Provider Clinical Nurse Specialist Adult Health
DX: M71.22 Synovial cyst of popliteal space [Baker], left knee (principal); M94.262 Chondromalacia, left knee; S83.242A Other tear of medial meniscus, current injury, left knee, initial encounter; M25.862 Other specified joint disorders, left knee; M17.12 Unilateral primary osteoarthritis, left knee; X58.XXXA Exposure to other specified factors, initial encounter
CPT/HCPCS: 73721

== ENCOUNTER 2024-08-29 10:20 | Outpatient (CLI) | payer MEDICAID, SELFPAY ==
--- NOTE | 2024-08-29 10:34 | XRR_ITS ---
PROCEDURE INFORMATION: Exam: XR Lumbosacral Spine Exam date and time: 08/29/2024 10:39 AM Age: 63 years old Clinical indication: Low back pain; Fractures in lower back in 2009, pain in lower back since. ; Additional info: Lumbosacral spondylosis TECHNIQUE: Imaging protocol: Radiologic exam of the lumbosacral spine. Views: 6 or more views. Including flexion and extension views. COMPARISON: No relevant prior studies available. FINDINGS: Bones/joints: There is slight degenerative spondylolisthesis L3-L4 maintained in flexion and extension. Lumbar curvature and alignment is otherwise unremarkable. There are no compression fractures detected. Disc heights are fairly well-maintained. There are mild degenerative changes of the facet joints with lower lumbar spine. Pedicles are intact. No underlying osseous lesions are identified. Soft tissues: Unremarkable. XR/XR lumbar spine 6V w f/e [id number] IMPRESSION: 1. Minimal degenerative spondylolisthesis L3-L4 maintained in flexion and extension. 2. Moderate facet arthrosis lower lumbar spine.
== END 2024-08-29 10:21 | disposition home or self-care (01) ==
LOC: RAD 10:25
PROVIDERS: PCP Clinical Nurse Specialist Adult Health; Visit Provider Student in an Organized Health Care Education/Training Program
DX: M47.817 Spondylosis without myelopathy or radiculopathy, lumbosacral region (principal); M47.816 Spondylosis without myelopathy or radiculopathy, lumbar region
CPT/HCPCS: 72114

== ENCOUNTER → 2024-11-08 13:19 | Outpatient (BNVA) | payer MEDICAID, SELFPAY | PROVIDERS: PCP Clinical Nurse Specialist Adult Health; Visit Provider Clinical Nurse Specialist Adult Health | DX: N39.0 Urinary tract infection, site not specified (principal); E55.9 Vitamin D deficiency, unspecified | CPT/HCPCS: 81000; 82306 ==